=== PATIENT | female | born 1950 | race African-American/Black ===

== ENCOUNTER 2025-05-10 05:58 | Day surgery (SDC) | payer MEDICARE ==
[2025-05-09 14:11] LABS: BASOPHILS % 0.7 % (0.0-1.0); EOSINOPHILS % 2.8 % (0.0-6.0); LYMPHOCYTES % 14.5 % (18.0-39.1); MONOCYTES % 8.0 % (4.4-11.3); NEUTROPHILS % 73.8 % (38.7-80.0); RED CELL DISTRIBUTION WIDTH 15.1 % (11.7-14.4)
[2025-05-09 14:46] LABS: EST GLOMERULAR FILTRATION RATE 95.0 ML/MIN (>=60)
[2025-05-10] VITALS (10 sets, daily range): BP systolic 108–202; BP diastolic 61–86; PULSE 54–62; RESP 11–24; TEMP 97.2–97.5; O2SAT 99–100
[~2025-05-10] VITALS: Ht 170.2 cm; Wt 67.6 kg
[~2025-05-10 05:58] MED LIST: ASPIRIN EC81 MG PO; CLOPIDOGREL75 MG PO; MEMANTINE HCL1 EACH PO; METOPROLOL SUCC50 MG PO; MIRTAZAPINE7.5 MG PO; ZOCOR10 MG PO
[2025-05-10] MEDS ORDERED: BENZOCAINE 20% SPR 60 ML CAN ONE (07:50)
[2025-05-10] MEDS ORDERED: SODIUM CHLORIDE 0.9% 1000ML 1,000 ML ONE (07:50)
[2025-05-10] MEDS ORDERED: LIDOCAINE HCL 2% LOCAL INJ 5 ML SDV VIAL INJ ONE (07:55)
[2025-05-10] MEDS ORDERED: PROPOFOL IV EMULSION 50 ML IV ONE ×2 (07:55)
[2025-05-10] MEDS ORDERED: LIDOCAINE 2% /EPINEPHRINE 20 ML SDV INJ ONE (07:55)
[2025-05-10] MEDS ORDERED: SODIUM CHLORIDE 0.9% 100 ML ONE (07:59)
[2025-05-10] MEDS ORDERED: PHENYLEPHRINE HCL 1% 10 MG/ML VIAL ONE (07:59)
== END 2025-05-10 11:00 | disposition home or self-care (01) ==
LOC: OR 05:58
PROVIDERS: ATTEND Internal Medicine Cardiovascular Disease
DX: I48.0 Paroxysmal atrial fibrillation (principal); I25.10 Atherosclerotic heart disease of native coronary artery without angina pectoris; I49.5 Sick sinus syndrome; I35.0 Nonrheumatic aortic (valve) stenosis; I35.1 Nonrheumatic aortic (valve) insufficiency; I34.0 Nonrheumatic mitral (valve) insufficiency; I37.1 Nonrheumatic pulmonary valve insufficiency; I07.1 Rheumatic tricuspid insufficiency; I10 Essential (primary) hypertension; E78.5 Hyperlipidemia, unspecified; Z01.812 Encounter for preprocedural laboratory examination; Z79.02 Long term (current) use of antithrombotics/antiplatelets; Z79.82 Long term (current) use of aspirin; Z79.899 Other long term (current) drug therapy; Z95.0 Presence of cardiac pacemaker
CPT/HCPCS: 36415; 80053; 85025; 93320; 93325; C8925; J2003; J2371; J2704; J7030; J7050; 93307; 93312; 93355; J2004